=== PATIENT | male | born 1970 | race Caucasian/White ===

== ENCOUNTER 2019-01-11 07:26 | Outpatient (CLI) | payer OTHER | END 2019-01-11 07:33 | disposition home or self-care (01) | LOC: SONOGRAMA 07:26 | DX: E04.2 Nontoxic multinodular goiter (principal) ==

== ENCOUNTER 2020-06-08 11:17 | Emergency (ER) | payer OTHER ==
[~2020-06-08] VITALS: Ht 188 cm; Wt 126.1 kg
[2020-06-08] MEDS ORDERED: IRBESARTAN-HCT1 EACH PO (11:38)
[2020-06-08] MEDS ORDERED: SYNTHROID175 MCG PO (11:39)
== END 2020-06-08 17:51 | disposition home or self-care (01) ==
LOC: ER 11:17
DX: R51 Headache (principal); H61.22 Impacted cerumen, left ear